=== PATIENT | male | born 1980 | race African-American/Black ===

== ENCOUNTER 2021-10-25 09:31 | Emergency (ER) | payer BC ==
[~2021-10-25] VITALS: Ht 177.8 cm; Wt 125.0 kg
[2021-10-25] MEDS ORDERED: CEFAZOLIN SODIUM 1000MG/VIAL IM ONE (10:00)
[2021-10-25] MEDS ORDERED: HYDROCODONE/ACETAMINOPHEN 5/325MG TABLET PO ONE (10:00)
[2021-10-25] MEDS ORDERED: BACITRACIN ZINC OINT UDPKT TOP ONE (10:00)
[2021-10-25] MEDS ORDERED: TETANUS, DIPHTHERIA, PERTUSSIS VAC/PF 0.5ML (>10YR OLD) IM ONE (10:00)
[2021-10-25] MEDS ORDERED: LIDOCAINE HCL/EPINEPHRINE 1%-EPI 1:100,000 20 ML VIAL INFIL ONE (10:00)
[2021-10-25] MEDS ORDERED: IBUPROFEN 800MG TABLET PO ONE (10:15)
[2021-10-25] MEDS ORDERED: HYDROCODONE/ACETAMINOPHEN 10/325MG TABLET PO ONE (10:30)
[2021-10-25] MEDS ORDERED: ACET650T37 MT (11:56)
[2021-10-25] MEDS ORDERED: IBUP-2030 MT (11:56)
[2021-10-25 12:07] VITALS: BP 167/66
== END 2021-10-25 12:09 | disposition home or self-care (01) ==
LOC: ER 09:31
DX: S52.122A Displaced fracture of head of left radius, initial encounter for closed fracture (principal); V00.141A Fall from scooter (nonmotorized), initial encounter; Y93.89 Activity, other specified; Y92.9 Unspecified place or not applicable
CPT/HCPCS: 73080; 73090; 73110; 99284; A4565